=== PATIENT | male | born 1955 | race Caucasian/White ===

== ENCOUNTER 2017-11-08 20:14 | Emergency (ER) | payer OTHER ==
[~2017-11-08] VITALS: Ht 190.5 cm; Wt 98.8 kg
[2017-11-08 20:32] VITALS: BP 143/82
[2017-11-08] MEDS ORDERED: SILVER SULF. CRM 1% , 25GM TP ONE (21:00)
[2017-11-08] MEDS ORDERED: SILVER SULF. CRM 1% , 25GM ONE (21:00)
== END 2017-11-08 21:31 | disposition home or self-care (01) ==
LOC: ED 21:06
DX: T23.121A Burn of first degree of single right finger (nail) except thumb, initial encounter (principal); T31.0 Burns involving less than 10% of body surface; X08.8XXA Exposure to other specified smoke, fire and flames, initial encounter; Y93.89 Activity, other specified; Y92.009 Unspecified place in unspecified non-institutional (private) residence as the place of occurrence of the external cause; Y99.8 Other external cause status
CPT/HCPCS: 16020